=== PATIENT | female | born 1975 | race Hispanic/Latino ===

== ENCOUNTER 2020-02-01 20:08 | Emergency (ER) | payer OTHER ==
[~2020-02-01] VITALS: Ht 152.4 cm; Wt 55.3 kg
[2020-02-01 20:44] LABS: BILIRUBIN,URINE NEGATIVE (NEGATIVE); CLARITY,URINE HAZY (CLEAR); COLOR,URINE AMBER (YELLOW); KETONES,URINE NEGATIVE (NEGATIVE); LEUKOCYTE ESTERASE ,URINE TRACE (NEGATIVE); NITRITE,URINE NEGATIVE (NEGATIVE); PROTEIN,URINE DIPSTICK 1+ (NEGATIVE); URINE UROBILINOGEN 0.2 mg/dL (0.2 - 1)
[2020-02-01 20:45] LABS: BACTERIA,URINE FEW /HPF; EPITHELIAL CELLS,URINE FEW /LPF; RBC,URINE >50 /HPF (0-5)
[2020-02-01 21:27] VITALS: BP 139/72
== END 2020-02-01 21:47 | disposition home or self-care (01) ==
LOC: ER 20:08
DX: O20.9 Hemorrhage in early pregnancy, unspecified (principal); O20.0 Threatened abortion; O23.10 Infections of bladder in pregnancy, unspecified trimester
CPT/HCPCS: 36415; 81001; 84702; 99283